=== PATIENT | male | born 1945 | race Caucasian/White ===

== ENCOUNTER → 2023-04-28 11:19 | Outpatient (REF) | payer MEDICARE, SELFPAY ==
[2023-04-28 12:08] LABS: % Basophils 0.5 % (0-2); % Eosinophils 0.9 % (0-6); % Immature Granulocytes 0.3 % (0-0.5); % Lymphocytes 16.7 % (20.5-51.1); % Monocytes 8.8 % (1.7-9.3); % Neutrophils 72.8 % (42.2-75.2); Absolute Eosinophils 0.1 10^3/uL (0-0.7); Absolute Lymphocytes 1.5 10^3/uL (1.2-3.4); Absolute Monocytes 0.8 10^3/uL (0.1-0.6); Absolute Neutrophils 6.4 10^3/uL (1.4-6.5); Hematocrit 43.6 % (39.0-52.0); Hemoglobin 14.3 g/dL (13.0-18.0); Mean Corp Hgb Conc. 32.8 g/dL (33.0-37.0); Mean Corpuscular Hgb 31.8 pg (27.0-31.0); Mean Corpuscular Volume 97.1 fL (80.0-94.0); Nucleated Red Blood Cells % 0 % (-); Platelet Count 187 10^3/uL (130-400); Red Blood Cell Count 4.49 10^6/uL (4.70-6.10); Red Cell Dist. Width 14.1 % (11.5-14.5); White Blood Cell Count 8.8 10^3/uL (4.8-10.8)
[2023-04-28 12:33] LABS: ALT (SGPT) 14 U/L (0-50); AST (SGOT) 30 U/L (17-59); Albumin 3.9 g/dl (3.5-5.0); Alkaline Phosphatase 60 U/L (38-126); Blood Urea Nitrogen 25 mg/dl (9-20); Calcium 9.4 mg/dl (8.4-10.2); Carbon Dioxide 31 mmol/L (22-30); Chloride 100 mmol/L (98-107); Glucose 93 mg/dl (70-99); HDL Cholesterol 83 mg/dl; LDL Cholesterol, Calculated 43 mg/dl; Potassium 3.7 mmol/L (3.5-5.1); Sodium 139 mmol/L (135-145); Total Bilirubin 1.4 mg/dl (0.2-1.3); Total Cholesterol 141 mg/dl (50-199); Total Protein 6.5 g/dl (6.3-8.2); Triglyceride 76 mg/dl (10-149); Very Low Density Lipoprotein 15 mg/dl (0-30); eGFR > 60.00
== END ==
LOC: REG 11:19
PROVIDERS: ATTENDING PHYSICIAN Internal Medicine
DX: Z00.01 Encounter for general adult medical examination with abnormal findings (principal); E21.5 Disorder of parathyroid gland, unspecified; I77.9 Disorder of arteries and arterioles, unspecified; I15.1 Hypertension secondary to other renal disorders
CPT/HCPCS: 36415; 80053; 80061; 85025

== ENCOUNTER → 2024-02-04 13:36 | Outpatient (REF) | payer MEDICARE, SELFPAY ==
[2024-02-04 15:35] LABS: Hematocrit 45.9 % (39.0-52.0); Hemoglobin 15.2 g/dL (13.0-18.0)
[2024-02-04 15:52] LABS: Protein/creatinine Ratio 1.1; Urine Protein 122 mg/dl
[2024-02-04 15:57] LABS: ALT (SGPT) 24 U/L (0-50); AST (SGOT) 31 U/L (17-59); Albumin 4.7 g/dl (3.5-5.0); Alkaline Phosphatase 58 U/L (38-126); Blood Urea Nitrogen 27 mg/dl (9-20); Calcium 9.5 mg/dl (8.4-10.2); Carbon Dioxide 30 mmol/L (22-30); Chloride 101 mmol/L (98-107); Glucose 85 mg/dl (70-99); Phosphorus 3.1 mg/dl (2.5-4.5); Potassium 4.1 mmol/L (3.5-5.1); Sodium 145 mmol/L (135-145); Total Bilirubin 0.9 mg/dl (0.2-1.3); Total Protein 7.5 g/dl (6.3-8.2); eGFR 55.53
[2024-02-04 16:12] LABS: TSH 2.22 uIU/ml (0.47-4.68)
[2024-02-06 15:04] LABS: Intact PTH 58.5 pg/ml (13.6-85.8)
== END ==
LOC: REG 13:36
PROVIDERS: ATTENDING PHYSICIAN Specialist; FAMILY PHYSICIAN Internal Medicine; OTHER PHYSICIAN Internal Medicine Endocrinology, Diabetes & Metabolism
DX: E04.1 Nontoxic single thyroid nodule (principal); E78.00 Pure hypercholesterolemia, unspecified; E78.5 Hyperlipidemia, unspecified; I15.1 Hypertension secondary to other renal disorders
CPT/HCPCS: 36415; 80053; 82570; 83970; 84100; 84156; 84443; 85014; 85018

== ENCOUNTER → 2024-11-17 12:26 | Outpatient (REF) | payer MEDICARE, SELFPAY ==
[2024-11-17 15:44] LABS: Urine Character Clear (Clear)
[2024-11-17 15:50] LABS: Carbon Dioxide 31 mmol/L (22-30); Chloride 104 mmol/L (98-107); Potassium 4.4 mmol/L (3.5-5.1); Sodium 142 mmol/L (135-145)
[2024-11-17 16:44] LABS: Urine Squamous Cell 0-2 /LPF (Few)
[2024-11-17 16:45] LABS: Urine White Cell 50-60 /HPF (0-5)
[2024-11-17 16:46] LABS: Urine Red Blood Cell 0-2 /HPF (0-2)
== END ==
LOC: HWRAD 12:26
PROVIDERS: ATTENDING PHYSICIAN Internal Medicine
DX: F80.9 Developmental disorder of speech and language, unspecified (principal); R41.3 Other amnesia; F02.80 Dementia in other diseases classified elsewhere, unspecified severity, without behavioral disturbance, psychotic disturbance, mood disturbance, and anxiety
CPT/HCPCS: 36415; 70450; 80051; 81003; 81015

== ENCOUNTER → 2024-12-01 13:48 | Outpatient (REF) | payer MEDICARE, SELFPAY ==
[2024-12-01 16:13] LABS: Urine Character Clear (Clear)
[2024-12-01 16:27] LABS: Urine Squamous Cell 0-2 /LPF (Few)
[2024-12-01 16:28] LABS: Urine Red Blood Cell 0-2 /HPF (0-2)
== END ==
LOC: HWLAB 13:48
PROVIDERS: ATTENDING PHYSICIAN Internal Medicine
DX: R82.81 Pyuria (principal)
CPT/HCPCS: 81003; 81015; 87086

== ENCOUNTER → 2025-01-05 16:14 | Outpatient (REF) | payer MEDICARE, SELFPAY | LOC: PAVMRI 16:14 | PROVIDERS: ATTENDING PHYSICIAN Nurse Practitioner; FAMILY PHYSICIAN Internal Medicine | DX: G30.9 Alzheimer's disease, unspecified (principal) | CPT/HCPCS: 70551 ==